=== PATIENT | male | born 1980 | race Caucasian/White ===

== ENCOUNTER 2020-02-24 13:01 | Emergency (ER) | payer OTHER ==
[2020-02-24] MEDS ORDERED: Morphine 4 MG/ML Syringe IVPUSH ONE (13:04)
[2020-02-24] MEDS ORDERED: Ondansetron 4 MG/2 ML SDV IVPUSH ONE (13:04)
[2020-02-24] MEDS ORDERED: Ondansetron 4 MG/2 ML SDV ONE (13:07)
[2020-02-24] MEDS ORDERED: Sodium Chloride 0.9% 1,000 ML IV ONE (13:09)
--- NOTE | 2020-02-24 13:32 | CR ---
Chest: Supine portable view of the chest was obtained. Comparison: Prior chest x-ray of 09/19/12. Heart size and mediastinum are within normal limits for portable technique. Lungs show no acute parenchymal change. Bony structures are grossly intact. Impression: 1. Nothing acute is appreciated on portable chest x-ray. Diagnostic code #1 This report was dictated in MDT
[2020-02-24] MEDS ORDERED: Iopamidol 755 Mg/ML 100 ML Bottle IVPUSH ONE (14:14)
[2020-02-24 14:33] VITALS: BP 168/109; PULSE 104
--- NOTE | 2020-02-24 14:35 | CT ---
CT chest Technique: Multiple axial sections were obtained from above the lung apices inferiorly through the lung bases. Intravenous contrast was utilized. Comparison: No prior chest CT, previous chest x-ray of 02/24/20. Findings: Mediastinum and hilar regions appear within normal limits. No adenopathy seen within the mediastinum or hilar areas. No pericardial thickening is seen. Visualized upper abdominal structures shows no discrete abnormality. No axillary adenopathy is appreciated. Lung window settings were reviewed. No acute parenchymal change is appreciated. No pleural effusions are seen. No pulmonary contusion is identified. No pneumothorax is appreciated. Bone window settings were reviewed which shows no acute osseous finding. Impression: 1. Nothing acute is appreciated on CT study of the chest. Diagnostic code #1 This report was dictated in MDT
--- NOTE | 2020-02-24 14:35 | CT ---
CT cervical spine Technique: Multiple axial sections through the cervical spine were obtained. Reconstructed coronal and sagittal images were obtained. Comparison: No prior cervical spine imaging is available. Findings: Vertebral bodies and posterior arches are intact with no fracture being seen. No bony central or bony neural foraminal stenosis is seen. Slight scattered degenerative change is noted. Mild ligamentum nuchal calcification is seen. No abnormal subluxation is seen. Impression: 1. Slight scattered degenerative change with ligamentum nuchal calcification. 2. Nothing acute is appreciated on CT study of the cervical spine. Diagnostic code #2 This report was dictated in MDT
--- NOTE | 2020-02-24 14:35 | CT ---
CT abdomen and pelvis Technique: Multiple axial sections were obtained from above the dome of the diaphragm inferiorly through the pubic symphysis. Intravenous contrast was utilized. No oral contrast has been given. Findings: Visualized lung bases show nothing acute. Liver contains no focal abnormality. Spleen appears within normal limits. Gallbladder contains no calcified gallstones. Aorta shows no aneurysm. Adrenal glands show no nodule. Pancreas is within normal limits. Gallbladder contains no calcified gallstones. No retroperitoneal adenopathy or mesenteric abnormalities are seen. Kidneys show symmetric contrast enhancement without hydronephrosis or mass. Aorta shows no aneurysm. No retroperitoneal adenopathy or mesenteric abnormalities are seen. No pelvic mass or adenopathy is seen. No free fluid or inflammatory change is seen. Small fat-containing inguinal hernias are noted. Appendix is seen which is normal in size. Bone window settings were reviewed. No acute osseous finding is appreciated. Impression: 1. Small fat-containing inguinal hernias. 2. Nothing acute is appreciated on CT study of the abdomen and pelvis. Diagnostic code #2 This report was dictated in MDT
[2020-02-24 15:33] LABS: BLOOD UREA NITROGEN,BUN 16 mg/dL (7.0-18.0); CARBON DIOXIDE,CO2 29.8 mmol/L (21.0-32.0); CHLORIDE,CL 100 mmol/L (98-107); GLUCOSE RANDOM 215 mg/dL (74-106); POTASSIUM,K 4.4 mmol/L (3.5-5.1); SODIUM,NA 136 mmol/L (136-148)
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
== END 2020-02-24 16:10 | disposition home or self-care (01) ==
LOC: MW.ED 13:01
DX: S30.0XXA Contusion of lower back and pelvis, initial encounter (principal); Z79.899 Other long term (current) drug therapy; V89.2XXA Person injured in unspecified motor-vehicle accident, traffic, initial encounter
CPT/HCPCS: 36415; 71045; 71260; 72125; 74177; 80053; 81003; 85025; 96361; 96374; 96375; 99285; J2270; J2405; J7030; Q9967; 99284

== ENCOUNTER 2022-09-12 16:01 | Emergency (ER) | payer BC, OTHER ==
[2022-09-12] MEDS ORDERED: Ondansetron 4 MG/2 ML SDV IVPUSH ONE (17:03)
[2022-09-12] MEDS ORDERED: Sodium Chloride 0.9% 1,000 ML IV ONE (17:03)
[2022-09-12] MEDS ORDERED: Morphine 4 MG/ML Syringe IVPUSH ONE (17:03)
[2022-09-12 18:38] LABS: CARBON DIOXIDE,CO2 26.3 mmol/L (21.0-32.0); POTASSIUM,K 4.6 mmol/L (3.5-5.1)
[2022-09-12] MEDS ORDERED: Acetaminophen 500 MG Tab PO ONE (19:11)
[2022-09-12] MEDS ORDERED: Iopamidol 755 MG/ML 500 ML Multipack Bottle IVPUSH STA (19:12)
[2022-09-12 20:10] VITALS: PULSE 80
[2022-09-12] MEDS ORDERED: Ketorolac 30 MG/ML SDV IVPUSH ONE (20:23)
[2022-09-12 20:46] VITALS: BP 144/100
== END 2022-09-12 20:45 | disposition home or self-care (01) ==
LOC: MW.ED 16:01
DX: M54.9 Dorsalgia, unspecified (principal); M54.12 Radiculopathy, cervical region; E11.9 Type 2 diabetes mellitus without complications; F17.210 Nicotine dependence, cigarettes, uncomplicated; Z79.4 Long term (current) use of insulin; Z79.899 Other long term (current) drug therapy
CPT/HCPCS: 36415; 73030; 74177; 80053; 81003; 82803; 82947; 83690; 84484; 85025; 96361; 96374; 96375; 99284; A9270; J1885; J2270; J2405; J7030; Q9967